=== PATIENT | male | born 1965 | race African-American/Black ===

== ENCOUNTER 2017-08-13 16:06 | Emergency (ER) | payer OTHER ==
[2017-08-13] MEDS ORDERED: ZOFRAN IV ONE ×2 (18:34→20:23)
[2017-08-13] MEDS ORDERED: NACL 0.9% 1000 ML 1,000 ML IV ONE (18:34)
[2017-08-13] MEDS ORDERED: MORPHINE IV ONE ×2 (18:34→20:23)
--- NOTE | 2017-08-13 18:39 | Emergency Department Report ---
Chief Complaint: Abdominal Pain Stated Complaint: ABD PAIN - HPI History of Present Illness: The patient is a 52-year-old male presents for evaluation of abdominal pain. The patient reports midline abdominal pain since last white, greater than 12 hours ago, constant since onset, worsening and becoming severe this morning, associated with nausea. The patient denies fever, chills, night sweats, blood in the stool, dark tarry stool. - Exam Vital Signs: Vital Signs 08/13/17 16:20 Temperature 98.8 F Pulse Rate 102 H Respiratory 16 Rate Blood Pressure 159/99 O2 Sat by Pulse 96 Oximetry MSE screening note: Focused history and physical exam performed. Due to findings the following was ordered: ED Disposition for MSE Condition: Stable
[2017-08-13 18:49] LABS: Basophils % (Auto) 0.1 % (0.0-1.8); Eosinophils # (Auto) 0.1 K/mm3 (0.0-0.4); Eosinophils % (Auto) 0.8 % (0.0-4.3); Hemoglobin 16.6 gm/dl (11.8-15.2); Lymphocytes # (Auto) 1.4 K/mm3 (1.2-5.4); Lymphocytes % (Auto) 10.2 % (13.4-35.0); Mean Corpuscular HGB Conc 34 % (32-34); Mean Corpuscular Hemoglobin 30 pg (28-32); Mean Corpuscular Volume 87 fl (84-94); Monocytes # (Auto) 0.6 K/mm3 (0.0-0.8); Monocytes % (Auto) 4.8 % (0.0-7.3); Platelet Count 308 K/mm3 (140-440); Red Blood Count 5.63 M/mm3 (3.65-5.03); Red Cell Distribution Width 14.2 % (13.2-15.2)
[2017-08-13 19:09] LABS: Alanine Aminotransferase 33 units/L (7-56); Albumin 4.1 g/dL (3.9-5); BUN/Creatinine Ratio 10; Blood Urea Nitrogen 8 mg/dL (9-20); Calcium 9.3 mg/dL (8.4-10.2); Hemolysis Index 23; Lipase 23 units/L (13-60)
[2017-08-13] MEDS ORDERED: REGLAN ONE (19:28)
[2017-08-13] MEDS ORDERED: REGLAN IV ONE ×2 (19:35→20:25)
--- NOTE | 2017-08-13 20:42 | Emergency Department Report ---
ED Abdominal Pain HPI - General Chief Complaint: Abdominal Pain Stated Complaint: ABD PAIN Time Seen by Provider: 08/13/17 20:17 Source: patient Mode of arrival: Ambulatory Limitations: Language Barrier - History of Present Illness Initial Comments: healthy 52 yo male presents with severe cramping abd pain since yesterday. Jul 2015 admitted to our hospital for partial SBO. patient has hx of appendectomy and ex lap due to adhesions and previous SBO MD Complaint: abdominal pain -: Gradual, days(s) (1) Location: diffuse Severity: severe Severity scale (0 -10): 8 Quality: cramping Consistency: constant Improves With: nothing Worsens With: nothing Associated Symptoms: nausea, diarrhea - Related Data Previous Rx's Medication Instructions Recorded Last Taken Type Ondansetron [Zofran Odt] 4 mg PO Q8HR PRN #14 tab.rapdis 12/24/15 Unknown Rx Polyethylene Glycol/Elect 4,000 ml PO ONCE #1 bottle 12/24/15 Unknown Rx [Golytely] traMADol [Ultram 50 MG tab] 50 mg PO Q6HR PRN #14 tablet 12/24/15 Unknown Rx Famotidine 20 mg PO BID 14 Days #28 tablet 08/13/17 Unknown Rx Ondansetron [Zofran Odt] 4 mg PO Q8HR #9 tab.rapdis 08/13/17 Unknown Rx Allergies Allergy/AdvReac Type Severity Reaction Status Date / Time No Known Allergies Allergy Unverified 07/14/15 22:44 ED Review of Systems ROS: Stated complaint: ABD PAIN Other details as noted in HPI Comment: All other systems reviewed and negative Constitutional: denies: chills, fever Respiratory: denies: cough Cardiovascular: denies: chest pain ED Past Medical Hx - Past Medical History Previous Medical History?: No Hx Congestive Heart Failure: No Hx Diabetes: No Hx Asthma: No Hx COPD: No - Surgical History Past Surgical History?: Yes Hx Appendectomy: Yes (2004) - Social History Smoking Status: Never Smoker Substance Use Type: None - Medications Home Medications: Home Medications Medication Instructions Recorded Confirmed Last Taken Type Ondansetron [Zofran Odt] 4 mg PO Q8HR PRN #14 tab.rapdis 12/24/15 Unknown Rx Polyethylene Glycol/Elect 4,000 ml PO ONCE #1 bottle 12/24/15 Unknown Rx [Golytely] traMADol [Ultram 50 MG tab] 50 mg PO Q6HR PRN #14 tablet 12/24/15 Unknown Rx Famotidine 20 mg PO BID 14 Days #28 tablet 08/13/17 Unknown Rx Ondansetron [Zofran Odt] 4 mg PO Q8HR #9 tab.rapdis 08/13/17 Unknown Rx ED Physical Exam - General Limitations: Language Barrier General appearance: alert, in no apparent distress - Head Head exam: Present: atraumatic, normocephalic - Eye Eye exam: Present: normal appearance - ENT ENT exam: Present: mucous membranes moist - Neck Neck exam: Present: normal inspection - Respiratory Respiratory exam: Present: normal lung sounds bilaterally. Absent: respiratory distress, wheezes, rales, rhonchi - Cardiovascular Cardiovascular Exam: Present: regular rate, normal rhythm, normal heart sounds. Absent: systolic murmur, diastolic murmur, rubs, gallop - GI/Abdominal GI/Abdominal exam: Present: soft, distended, other (longitudinal central incisional scar). Absent: tenderness, guarding, rebound, hypoactive bowel sounds - Rectal Rectal exam: Present: deferred - Extremities Exam Extremities exam: Present: normal inspection - Back Exam Back exam: Present: normal inspection - Neurological Exam Neurological exam: Present: alert, oriented X3 - Psychiatric Psychiatric exam: Present: normal affect, normal mood - Skin Skin exam: Present: warm, dry, intact, normal color. Absent: rash ED Course Vital Signs 08/13/17 08/13/17 16:20 21:28 Temperature 98.8 F 98 F Pulse Rate 102 H 78 Respiratory 16 16 Rate Blood Pressure 159/99 Blood Pressure 118/77 [Left] O2 Sat by Pulse 96 98 Oximetry ED Medical Decision Making - Lab Data Result diagrams: 08/13/17 18:40 08/13/17 18:40 Laboratory Results - last 24 hr 08/13/17 08/13/17 08/13/17 18:40 18:40 18:40 WBC 13.2 H RBC 5.63 H Hgb 16.6 H Hct 49.0 H MCV 87 MCH 30 MCHC 34 RDW 14.2 Plt Count 308 Lymph % (Auto) 10.2 L [place] % (Auto) 4.8 Eos % (Auto) 0.8 Baso % (Auto) 0.1 Lymph # 1.4 [place] # 0.6 Eos # 0.1 Baso # 0.0 Seg Neutrophils % 84.1 H Seg Neutrophils # 11.1 H Sodium 137 Potassium 4.3 Chloride 100.8 Carbon Dioxide 24 Anion Gap 17 BUN 8 L Creatinine 0.8 Estimated GFR > 60 BUN/Creatinine Ratio 10 Glucose 145 H Calcium 9.3 Total Bilirubin 0.50 AST 19 ALT 33 Alkaline Phosphatase 77 Troponin T < 0.010 Total Protein 7.3 Albumin 4.1 Albumin/Globulin Ratio 1.3 Lipase 23 Urine Color Urine Turbidity Urine pH Ur Specific [place] Urine Protein Urine Glucose (UA) Urine Ketones Urine Blood Urine Nitrite Urine Bilirubin Urine Urobilinogen Ur Leukocyte Esterase Urine WBC (Auto) Urine RBC (Auto) U Epithel Cells (Auto) Urine Mucus 08/13/17 20:35 WBC RBC Hgb Hct MCV MCH MCHC RDW Plt Count Lymph % (Auto) [place] % (Auto) Eos % (Auto) Baso % (Auto) Lymph # [place] # Eos # Baso # Seg Neutrophils % Seg Neutrophils # Sodium Potassium Chloride Carbon Dioxide Anion Gap BUN Creatinine Estimated GFR BUN/Creatinine Ratio Glucose Calcium Total Bilirubin AST ALT Alkaline Phosphatase Troponin T Total Protein Albumin Albumin/Globulin Ratio Lipase Urine Color Straw Urine Turbidity Clear Urine pH 6.0 Ur Specific [place] 1.043 H Urine Protein <15 mg/dl Urine Glucose (UA) Neg Urine Ketones Neg Urine Blood Neg Urine Nitrite Neg Urine Bilirubin Neg Urine Urobilinogen < 2.0 Ur Leukocyte Esterase Sm Urine WBC (Auto) 7.0 H Urine RBC (Auto) < 1.0 U Epithel Cells (Auto) < 1.0 Urine Mucus Few - EKG Data -: EKG Interpreted by Al EKG shows normal: sinus rhythm, axis, intervals, QRS complexes, ST-T waves Rate: normal (rate 75 bpm) - Radiology Data Radiology results: report reviewed enteritis - Medical Decision Making Mr. Hutson has mild enteritis on CT scan without obstruction. rx: famotidine for 2 weeks and Zofran as needed dc'd home Critical care attestation.: If time is entered above; I have spent that time in minutes in the direct care of this critically ill patient, excluding procedure time. ED Disposition Clinical Impression: Enteritis Disposition: [id number] TO HOME OR SELFCARE Is pt being admited?: No Does the pt Need Aspirin: No Condition: Stable Instructions: Acute Abdominal Pain (ED) Prescriptions: Famotidine 20 mg PO BID 14 Days #28 tablet Ondansetron [Zofran Odt] 4 mg PO Q8HR #9 tab.rapdis Forms: Work/School Release Form(ED)
[2017-08-13 20:58] LABS: Bilirubin,Urine NEG (Negative); Blood,Urine NEG (Negative); Color,Urine Straw (Yellow); Mucus,Urine FEW /HPF; Protein,Urine <15 mg/dL mg/dL (Negative); RBC,Urine < 1.0 /HPF (0.0-6.0); Urobilinogen,Urine < 2.0 mg/dL (<2.0)
--- NOTE | 2017-08-13 21:26 | Cat Scan Report ---
FINAL REPORT PROCEDURE: CT ABDOMEN PELVIS W CON TECHNIQUE: Computerized axial tomography of the abdomen and pelvis was performed after the IV injection of iodinated nonionic contrast. HISTORY: abdominal pain COMPARISON: No prior studies are available for comparison. FINDINGS: Diffuse prominence of interstitial markings is noted., Spleen, and adrenal glands are within normal limits. Small well-defined cystic lesions measuring less than 5 millimeters are noted in the left kidney. There is no obstructive uropathy. Urinary bladder is normally distended with normal outlines. Aorta is of normal caliber. There is no free air in the peritoneal cavity. Mild degree free fluid is noted in the pelvic cavity. A 3 millimeter calculus is noted in the dependent portion of gallbladder. Multiple loops of small bowel in the left abdomen demonstrate mild degree diffuse wall thickening. There is evidence of prior small bowel surgery in the right lower quadrant. Colon is unremarkable. Appendix is not distinctly visualized. There are no inflammatory changes in the right lower quadrant. Mild prostatomegaly is noted. IMPRESSION: Thickened and mildly dilated multiple loops of small bowel in the left abdomen is consistent with enteritis. Mild degree free fluid. Small gallbladder calculus.
[2017-08-13 21:29] VITALS: BP 118/77
== END 2017-08-13 23:30 | disposition home or self-care (01) ==
LOC: ED 16:06
DX: K52.9 Noninfective gastroenteritis and colitis, unspecified (principal)
CPT/HCPCS: 36415; 74177; 80053; 81001; 83690; 84484; 85025; 93005; 93010; 96361; 96374; 96375; 96376; 99284; J2765; J7030; Q9967; J2270